=== PATIENT | female | born 1930 | race Caucasian/White ===

== ENCOUNTER 2017-06-04 08:22 | Outpatient (CLI) | payer MEDICARE, BC ==
--- NOTE | 2017-06-04 10:28 | CT ---
CT ABDOMEN AND PELVIS WITHOUT CONTRAST: Date: 06/04/17 HISTORY: 87-year-old female with incomplete bladder emptying, left nephrectomy, cholecystectomy, hysterectomy, and appendectomy. FINDINGS: Absence of oral and IV contrast reduces the sensitivity of exam, particularly for evaluation of solid organs and bowel. The lung bases are clear. No free air or free fluid is seen in the abdomen or pelvis. The patient is post left nephrectomy, cholecystectomy, appendectomy, and hysterectomy. No calculi seen in the right kidney, right ureter, or the urinary bladder. No hydroureteronephrosis i s noted. Multiple cysts are seen in the right kidney, the largest measuring about 3.1 cm. There is colonic diverticulosis without evidence of diverticulitis. There are vascular calcifications without evidence of aneurysmal dilatation of the abdominal aorta. Degenerative changes are present i n the spine. There is a 2.7 cm right adnexal cystic mass. IMPRESSION: 1. Right renal cysts. 2. Colonic diverticulosis. 3. 2.7 cm right adnexal cystic mass. This should be evaluated with a pelvic ultrasound. POS: OFF
== END 2017-06-04 08:23 | disposition home or self-care (01) ==
LOC: CT 08:22
PROVIDERS: ATTEND Urology
DX: R39.14 Feeling of incomplete bladder emptying (principal); N18.9 Chronic kidney disease, unspecified; N28.1 Cyst of kidney, acquired; K57.30 Diverticulosis of large intestine without perforation or abscess without bleeding; N85.8 Other specified noninflammatory disorders of uterus; Z90.5 Acquired absence of kidney
CPT/HCPCS: 74176

== ENCOUNTER 2018-10-01 08:44 | Outpatient (CLI) | payer MEDICARE, BC ==
--- NOTE | 2018-10-01 10:53 | ULT ---
RENAL ULTRASOUND: Date: 10/01/18 HISTORY: Incomplete bladder emptying. FINDINGS: The patient is post left nephrectomy. The right kidney measures 11.4 cm in length. There are multiple cysts in the right kidney, the larges t measuring 3.2 cm superiorly and 2.3 cm inferiorly. No hydronephrosis or shadowing calculus is seen. The pre-void bladder volume measures 299 mL, with a post-void residual of 213 mL. The urinary bladder is grossly unremarkable. IMPRESSION: 1. Status post left nephrectomy. 2. Right renal cysts. 3. Significant post-void residual in the urinary bladder. POS: OFF
== END 2018-10-01 08:45 | disposition home or self-care (01) ==
LOC: BICULT 08:44
PROVIDERS: ATTEND Urology
DX: R39.14 Feeling of incomplete bladder emptying (principal); Q60.0 Renal agenesis, unilateral; N28.1 Cyst of kidney, acquired; R39.198 Other difficulties with micturition; Z87.442 Personal history of urinary calculi; Z90.5 Acquired absence of kidney
CPT/HCPCS: 76775